=== PATIENT | female | born 2000 | race American Indian/Alaskan Native ===

== ENCOUNTER 2022-01-09 09:27 | Outpatient (CLI) | payer MEDICAID ==
[2022-01-09 10:11] VITALS: BP 121/62
== END 2022-01-09 13:18 | disposition home or self-care (01) ==
LOC: TRG 09:27 → APU 09:28 → TRG 13:18
PROVIDERS: ATTEND Student in an Organized Health Care Education/Training Program
DX: O47.1 False labor at or after 37 completed weeks of gestation (principal); Z3A.39 39 weeks gestation of pregnancy
CPT/HCPCS: 59025

== ENCOUNTER 2022-01-10 23:13 | Inpatient (IN) | payer MEDICAID ==
[2022-01-11] MEDS ORDERED: BUTORPHANOL 2 MG/1 ML INJ IV PRN ×2 (00:27)
[2022-01-11] MEDS ORDERED: MINERAL OIL 30 ML ORAL LIQD PO PRN (00:27)
[2022-01-11] MEDS ORDERED: OXYTOCIN 10 UNIT/1 ML INJ IM PRN (00:27)
[2022-01-11] MEDS ORDERED: METHYLERGONOVINE MALEATE 0.2 MG/ML VIAL IM PRN (00:27)
[2022-01-11] MEDS ORDERED: TERBUTALINE 1 MG/1 ML INJ SUB-Q PRN (00:27)
[2022-01-11] MEDS ORDERED: fentaNYL 100 MCG/2 ML INJ IV PRN (00:27)
[2022-01-11] MEDS ORDERED: LIDOCAINE (2%) 20 MG/1 ML VIAL 20 ML MDV INFILTRATI ONE (00:27)
[2022-01-11] MEDS ORDERED: CARBOPROST TROMETHAMINE 250 MCG/1 ML INJ IM PRN (00:27)
[2022-01-11] MEDS ORDERED: LOPERAMIDE 2 MG CAP PO PRN (00:27)
[2022-01-11] MEDS ORDERED: miSOPROStol 200 MCG TAB PR PRN (00:27)
[2022-01-11] MEDS ORDERED: ACETAMINOPHEN 325 MG TAB PO PRN ×3 (00:27→13:33)
[2022-01-11] MEDS ORDERED: ePHEDrine SULFATE 50 MG/1 ML INJ IV PRN ×2 (00:27→03:00)
[2022-01-11] MEDS ORDERED: LACTATED RINGERS 1,000 ML IV SCH (00:30)
--- NOTE | 2022-01-11 00:34 | History and Physical Report ---
History of Present Illness Date of examination: 01/11/22 Chief complaint: painful uterine contractions History of present illness: EDC Calculations by LMP: 01/13/2022 EDC Confirmation: 01/13/2022 Past History : 1 Past Medical History: Reviewed and updated today: Negative Past Medical History Past Surgical History: Reviewed and updated today: Negative Past Surgical History General Comments - FH: neg Social History: no e/t/d Risk Factors: Smoked Tobacco Use: Never smoker Smokeless Tobacco Use: Never HIV High Risk Behavior: no Exercise: no Seatbelt Use: 100 % Alcohol Use: no Drug Use: no Past Medical History 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 of genital herpes: no Rash, Viral, or Febrile illness since last LMP? no Varicella/Chicken Pox Status: no Genetic History Congenital Heart Defect: Mom: no Dad: no Kristin Disease: Mom: no Dad: no Thalassemia Mom: no Dad: no Neural Tube Defect Mom: no Dad: no Down's Syndrome Mom: no Dad: no Kevin-Sachs Mom: no Dad: no Sickle Cell Disease/Trait Mom: no Dad: no Hemophilia Mom: no Dad: no Muscular Dystrophy Mom: no Dad: no Cystic Fibrosis Mom: no Dad: no [place] Chorea Mom: no Dad: no Mental Retardation Mom: no Dad: no Fragile X Mom: no Dad: no Other Genetic/Chromosomal Disorder Mom: no Dad: no Child w/other defect Mom: no Dad: no Enviromental Exposures Xray Exposure: no Medication, drug, or alcohol use since LMP: no Chemical/Other Exposure: no Exposure to Cat Liter: no Hx of Parvovirus (Fifth Disease): no Occupational Exposure to Children: none Active Medications: None Past History Past Medical History: other (see HPI) Past Surgical History: other (see HPI) [employer] History: other (see HPI) Family/Genetic History: other (see HPI) - Obstetrical History Expected Date of Delivery: 01/13/22 Actual Gestation: 39 Week(s) 5 Day(s) : 1 Para: 0 Hx # Term Pregnancies: 0 Number of Pregnancies: 0 Spontaneous Abortions: 0 Induced : 0 Number of Living Children: 0 Medications and Allergies Allergies Allergy/AdvReac Type Severity Reaction Status Date / Time No Known Allergies Allergy Verified 01/11/22 00:34 Review of Systems All systems: negative - Vital Signs Vital signs: Vital Signs Resp Pulse Ox 14 100 01/10/22 23:52 01/10/22 23:52 Temp Pulse Resp BP Pulse Ox 92 H 14 99 01/11/22 00:28 01/10/22 23:52 01/11/22 00:28 - Physical Exam Cardiovascular: Regular rate Lungs: Positive: Normal air movement Abdomen: Positive: normal appearance, soft Genitourinary (Female): Positive: normal external genitalia, normal perenium Vulva: both: normal Vagina: Positive: normal moisture Uterus: Positive: normal size, normal contour Anus/Rectum: Positive: normal perianal skin Extremities: Positive: normal - Obstetrical Uterine Contraction Monitor Mode: External Cervical Dilatation: 4 (per triage nurse) Cervical Effacement Percentage: 60 station: -3 Uterine Contraction Pattern: Regular Uterine Tone Measurement Phase: Contraction Uterine Contraction Intensity: Moderate Results Result Diagrams: 01/11/22 01:00 All other labs normal. Assessment and Plan pt started care in our office @ 33 weeks. 21y/o @ 39+5 weeks. She was exam ined in triage 24hrs ago and was closed, she is now 4/60/-3 with regular painful ctx. admission orders in EMR. labs orders. GBS negative. Epidural PRN. - Patient Problems (1) 39 weeks gestation of Current Visit: Yes Status: Acute (2) Rh negative status during Current Visit: Yes Status: Acute Qualifiers: Trimester: third trimester Qualified Code(s): O26.893 - Other specified related conditions, third trimester; Z67.91 - Unspecified blood type, Rh negative
[2022-01-11] MEDS ORDERED: OXYTOCIN DRIP 30 UNITS/500 ML BAG IV SCH ×3 (01:00→13:33)
[2022-01-11 01:24] LABS: Hematocrit 31.1 % (30.3-42.9); Hemoglobin 10.2 gm/dl (10.1-14.3); Mean Corpuscular HGB Conc 33 % (30-34); Mean Corpuscular Volume 72 fl (79-97); Platelet Count 309 K/mm3 (140-440); Red Cell Distribution Width 18.5 % (13.2-15.2)
[2022-01-11 01:49] LABS: Hepatitis C Virus Antibody Non-Reactive (NonReactive)
[2022-01-11] MEDS ORDERED: fentaNYL-BUPIV 2 MCG/ML-0.125% 200 MCG/100 ML BAG EPIDURAL SCH (03:00)
[2022-01-11] MEDS ORDERED: NALOXONE 0.4 MG/1 ML INJ IV PRN (03:00)
--- NOTE | 2022-01-11 03:47 | Anesthesia Consultation ---
Anesthesia Consult and Med Hx Date of service: 01/11/22 - Airway Anesthetic Teeth Evaluation: Poor ROM Head & Neck: Adequate Mental/Hyoid Distance: Adequate Mallampati Class: Class II Intubation Access Assessment: Good - Pulmonary Exam CTA: Yes - Cardiac Exam Cardiac Exam: RRR - Pre-Operative Health Status ASA Pre-Surgery Classification: ASA2 Proposed Anesthetic Plan: Epidural - Pulmonary Hx Asthma: No - Cardiovascular System Hx Hypertension: No - Central Nervous System Hx Seizures: No Hx Psychiatric Problems: No - Endocrine Hx Renal Disease: No Hx Hypothyroidism: No Hx Hyperthyroidism: No - Hematic Hx Anemia: No Hx Sickle Cell Disease: No - Other Systems Hx Alcohol Use: No Hx Substance Use: No
--- NOTE | 2022-01-11 03:49 | Progress Note ---
Labor Epidural - Labor Epidural Start Time: 03:13 Stop Time: 03:30 Performed by:: ITZ FLAHERTY Procedure: Patient is requesting a laboring epidural for laboring pain. Patient IDed, H&P reviewed, all questions and concerns were answered, and consent was signed. Timeout was performed at bedside. Patient in sitting position. Sterile prep and drape was performed. [3] ml of 1% lidocaine skin wheal at L[3]- L [4]. 17- gauge Tuohy epidural needle was advanced to loss of resistance with saline technique 7cm. Single dural perforation via 25 guage spinal needle placed through the shaft of Epidural needle. Positive CSF via spinal needle. Negative CSF negative blood via Epidural needle. Epidural catheter advanced to [12] centimeters. [NEGATIVE] Aspiration [NEGATIVE] test dose. Negative Paresthesia. Sterile dressing applied. Patient tolerated procedure.
--- NOTE | 2022-01-11 07:38 | Progress Note ---
Assessment and Plan A: 21 y.o. @ 39.5 wks, active labor. - Patient Problems (1) 39 weeks gestation of Current Visit: Yes Status: Acute Plan to address problem: Continue with expectant management. Will consider starting Pitocin if contractions space out. Anticipate . Subjective - Subjective Date of service: 01/11/22 Principal diagnosis: IUP @ 39.5 wks, active labor Interval history: Pt comfortable with epidural. Patient reports: movement normal Objective - Vital Signs Vital Signs: Vital Signs - 12hr 01/10/22 01/11/22 01/11/22 23:52 00:13 00:18 Temperature Pulse Rate 91 H 97 H Respiratory 14 Rate Blood Pressure O2 Sat by Pulse 100 100 98 Oximetry 01/11/22 01/11/22 01/11/22 00:23 00:28 00:33 Temperature Pulse Rate 95 H 92 H 92 H Respiratory Rate Blood Pressure O2 Sat by Pulse 99 99 99 Oximetry 01/11/22 01/11/22 01/11/22 00:38 00:43 00:48 Temperature Pulse Rate 96 H 87 91 H Respiratory Rate Blood Pressure O2 Sat by Pulse 100 100 99 Oximetry 01/11/22 01/11/22 01/11/22 00:53 00:58 01:03 Temperature Pulse Rate 93 H 105 H 103 H Respiratory Rate Blood Pressure O2 Sat by Pulse 99 100 100 Oximetry 01/11/22 01/11/22 01/11/22 01:08 01:13 01:18 Temperature Pulse Rate 96 H 102 H 97 H Respiratory Rate Blood Pressure O2 Sat by Pulse 100 99 99 Oximetry 01/11/22 01/11/22 01/11/22 01:23 01:28 01:33 Temperature Pulse Rate 89 98 H 91 H Respiratory Rate Blood Pressure O2 Sat by Pulse 100 100 100 Oximetry 01/11/22 01/11/22 01/11/22 01:38 01:43 01:48 Temperature Pulse Rate 77 89 87 Respiratory Rate Blood Pressure O2 Sat by Pulse 100 100 100 Oximetry 01/11/22 01/11/22 01/11/22 01:53 01:58 02:03 Temperature Pulse Rate 97 H 99 H 98 H Respiratory Rate Blood Pressure O2 Sat by Pulse 100 100 100 Oximetry 01/11/22 01/11/22 01/11/22 02:05 02:08 02:13 Temperature 97.9 F Pulse Rate 99 H 91 H Respiratory Rate Blood Pressure O2 Sat by Pulse 100 100 Oximetry 01/11/22 01/11/22 01/11/22 02:18 02:23 02:28 Temperature Pulse Rate 83 85 97 H Respiratory Rate Blood Pressure O2 Sat by Pulse 100 99 100 Oximetry 01/11/22 01/11/22 01/11/22 02:33 02:38 02:43 Temperature Pulse Rate 105 H 101 H 89 Respiratory Rate Blood Pressure O2 Sat by Pulse 100 100 100 Oximetry 01/11/22 01/11/22 01/11/22 02:48 03:02 03:03 Temperature Pulse Rate 109 H 83 84 Respiratory Rate Blood Pressure 122/75 O2 Sat by Pulse 100 100 Oximetry 01/11/22 01/11/22 01/11/22 03:07 03:12 03:17 Temperature Pulse Rate 88 89 109 H Respiratory Rate Blood Pressure O2 Sat by Pulse 100 100 100 Oximetry 01/11/22 01/11/22 01/11/22 03:22 03:27 03:28 Temperature Pulse Rate 99 H 94 H 103 H Respiratory Rate Blood Pressure 118/74 O2 Sat by Pulse 100 100 Oximetry 01/11/22 01/11/22 01/11/22 03:31 03:32 03:34 Temperature Pulse Rate 101 H 107 H 98 H Respiratory Rate Blood Pressure 119/73 115/68 O2 Sat by Pulse 99 Oximetry 01/11/22 01/11/22 01/11/22 03:37 03:40 03:42 Temperature Pulse Rate 100 H 90 95 H Respiratory Rate Blood Pressure 122/72 114/62 O2 Sat by Pulse 100 100 Oximetry 01/11/22 01/11/22 01/11/22 03:43 03:46 03:47 Temperature Pulse Rate 93 H 89 85 Respiratory Rate Blood Pressure 116/61 115/58 O2 Sat by Pulse 99 Oximetry 01/11/22 01/11/22 01/11/22 03:49 03:52 03:56 Temperature Pulse Rate 84 94 H 82 Respiratory Rate Blood Pressure 104/58 106/56 94/52 O2 Sat by Pulse 99 Oximetry 01/11/22 01/11/22 01/11/22 03:57 03:58 04:01 Temperature Pulse Rate 88 87 82 Respiratory Rate Blood Pressure 104/57 113/64 O2 Sat by Pulse 100 Oximetry 01/11/22 01/11/2201/11/22 04:02 04:04 04:07 Temperature Pulse Rate 86 88 81 Respiratory Rate Blood Pressure 111/62 108/63 O2 Sat by Pulse 100 100 Oximetry 01/11/22 01/11/22 01/11/22 04:10 04:12 04:13 Temperature Pulse Rate 86 84 86 Respiratory Rate Blood Pressure 106/62 110/64 O2 Sat by Pulse 100 Oximetry 01/11/22 01/11/22 01/11/22 04:17 04:22 04:27 Temperature Pulse Rate 87 92 H 90 Respiratory Rate Blood Pressure 132/59 O2 Sat by Pulse 100 100 100 Oximetry 01/11/22 01/11/22 01/11/22 04:32 04:34 04:37 Temperature Pulse Rate 95 H 93 H 84 Respiratory Rate Blood Pressure 122/62 O2 Sat by Pulse 100 100 Oximetry 01/11/22 01/11/22 01/11/22 04:42 04:47 04:48 Temperature Pulse Rate 80 75 78 Respiratory Rate Blood Pressure 110/57 O2 Sat by Pulse 100 100 Oximetry 01/11/22 01/11/22 01/11/22 04:52 04:57 05:02 Temperature Pulse Rate 88 86 82 Respiratory Rate Blood Pressure O2 Sat by Pulse 99 99 99 Oximetry 01/11/22 01/11/22 01/11/22 05:04 05:07 05:12 Temperature Pulse Rate 83 75 87 Respiratory Rate Blood Pressure 109/56 O2 Sat by Pulse 99 99 Oximetry 01/11/22 01/11/22 01/11/22 05:17 05:18 05:22 Temperature Pulse Rate 94 H 81 85 Respiratory Rate Blood Pressure 95/55 O2 Sat by Pulse 99 99 Oximetry 01/11/22 01/11/22 01/11/22 05:27 05:32 05:34 Temperature Pulse Rate 79 82 85 Respiratory Rate Blood Pressure 96/54 O2 Sat by Pulse 99 99 Oximetry 01/11/22 01/11/22 01/11/22 05:37 05:42 05:47 Temperature Pulse Rate 74 85 83 Respiratory Rate Blood Pressure 95/49 O2 Sat by Pulse 99 98 98 Oximetry 01/11/22 01/11/22 01/11/22 05:52 05:57 06:02 Temperature Pulse Rate 67 63 80 Respiratory Rate Blood Pressure 89/53 O2 Sat by Pulse 98 98 98 Oximetry 01/11/22 01/11/22 01/11/22 06:07 06:12 06:17 Temperature Pulse Rate 72 76 76 Respiratory Rate Blood Pressure O2 Sat by Pulse 99 98 98 Oximetry 01/11/22 01/11/22 01/11/22 06:18 06:22 06:27 Temperature Pulse Rate 75 73 61 Respiratory Rate Blood Pressure 90/51 O2 Sat by Pulse 98 100 Oximetry 01/11/22 01/11/22 01/11/22 06:32 06:33 06:37 Temperature Pulse Rate 87 88 76 Respiratory Rate Blood Pressure 103/55 O2 Sat by Pulse 99 99 Oximetry 01/11/22 01/11/22 01/11/22 06:42 06:47 06:48 Temperature Pulse Rate 83 75 74 Respiratory Rate Blood Pressure 102/51 O2 Sat by Pulse 99 99 Oximetry 01/11/22 01/11/22 01/11/22 06:52 06:57 07:02 Temperature Pulse Rate 75 73 76 Respiratory Rate Blood Pressure O2 Sat by Pulse 100 99 99 Oximetry 01/11/22 01/11/22 01/11/22 07:05 07:07 07:12 Temperature Pulse Rate 75 81 81 Respiratory Rate Blood Pressure 81/43 O2 Sat by Pulse 98 99 Oximetry 01/11/22 01/11/22 01/11/22 07:17 07:22 07:27 Temperature Pulse Rate 73 76 92 H Respiratory Rate Blood Pressure O2 Sat by Pulse 98 100 99 Oximetry 01/11/22 01/11/22 07:29 07:32 Temperature Pulse Rate 81 76 Respiratory Rate Blood Pressure 91/46 88/63 O2 Sat by Pulse 99 Oximetry - Exam Narrative Exam: AROM for clear fluid. Cardiovascular: Regular rate Lungs: Normal air movement Abdomen: Present: normal appearance, soft Vulva: both: normal FHR: category 1 Uterine Contraction Monitor Mode: External Cervical Dilatation: 9.5 Cervical Effacement Percentage: 100 station: 0 Uterine Contraction Pattern: Regular Uterine Tone Measurement Phase: Resting Uterine Contraction Intensity: Moderate Extremities: normal - Labs Labs: Abnormal Labs 01/11/22 01:00 MCV 72 L MCH 24 L RDW 18.5 H Laboratory Results - last 24 hr 01/11/22 01/11/22 01/11/22 01:00 01:00 01:00 WBC 9.2 RBC 4.30 Hgb 10.2 Hct 31.1 MCV 72 L MCH 24 L MCHC 33 RDW 18.5 H Plt Count 309 Syphilis IgG/IgM Ab Nonreactive Hep Bs Antigen Hepatitis C Antibody Non-reactive HIV 1&2 Antibody Rapid HIV P24 Antigen Rubella IgG Antibody Immune Blood Type O NEGATIVE Antibody Screen Negative 01/11/22 01/11/22 01:00 01:00 WBC RBC Hgb Hct MCV MCH MCHC RDW Plt Count Syphilis IgG/IgM Ab Hep Bs Antigen Non-reactive Hepatitis C Antibody HIV 1&2 Antibody Rapid Non react HIV P24 Antigen Non react Rubella IgG Antibody Blood Type Antibody Screen
--- NOTE | 2022-01-11 11:14 | Procedure Note ---
OB Delivery Note - Delivery Date of Delivery: 01/11/22 Cycle Manager: AJAY HERNANDEZ Estimated blood loss: 300cc - Vaginal Delivery presentation: vertex Delivery position: OA Intrapartum events: none Delivery induction: none Delivery augmentation: rupture of membranes Delivery monitor: external FHT, external uterine Route of delivery: Delivery cord: nuchal cord (Nuchal X1 loose), 3 umbilical vessels, other (Around foot X1 loose) Episiotomy: none Delivery laceration: 2nd degree, other (Labial laceration) Delivery repair: vicryl (3-0 CT, 3-0 SH) Anesthesia: epidural Delivery comments: of viable male. Infant to mother's abdomen for skin to skin. Nuchal cord X1 and around foot X1, easily reduced. Cord clamped after cessation of pulse. Cut by FOC. Spontaneous delivery of placenta, intact, complete, 3 vessels noted. Perineum and vaginal inspected. 2nd degree and labial lacerations noted. Both repaired. Fundus firm, minimal bleeding noted. Blood loss: 300ml. Apgars 8,9. Infant weight: 6-15. Instruments and sponges counted X2 with RN and correct X2. and mother left in stable condition in care of RN. - A at 1 minute: 8 at 5 minutes: 9 ("Richie", 6-15) Gender: Male
[2022-01-11] MEDS ORDERED: MAGNESIUM HYDROXIDE (MOM) ORAL LIQD UDC PO PRN (13:33)
[2022-01-11] MEDS ORDERED: diphenhydrAMINE 25 MG CAP PO PRN (13:33)
[2022-01-11] MEDS ORDERED: LANOLIN/ZINC/DIMETHICONE (LANSINOH) 7 GM TP PRN ×2 (13:33)
[2022-01-11] MEDS ORDERED: ONDANSETRON 4 MG/2 ML INJ IV PRN (13:33)
[2022-01-11] MEDS ORDERED: miSOPROStol 100 MCG TAB PR PRN (13:33)
[2022-01-11] MEDS ORDERED: PROMETHAZINE 25 MG RECT SUPP PR PRN (13:33)
[2022-01-11] MEDS ORDERED: WITCH HAZEL/ GLYCERIN PAD TP PRN (13:33)
[2022-01-11] MEDS ORDERED: PROMETHAZINE 25 MG TAB PO PRN (13:33)
[2022-01-11] MEDS ORDERED: BENZOCAINE/MENTHOL 20/0.5% TOP SPRAY 56 GM TP PRN (13:33)
[2022-01-11] MEDS ORDERED: oxyCODONE /ACETAMINOPHEN 5-325MG TAB PO PRN (13:33)
[2022-01-11] MEDS: IBUPROFEN 800 MG TAB PO SCH ×2 (15:21→21:32)
[2022-01-11] MEDS: DOCUSATE SODIUM 100 MG CAP PO SCH (21:32)
[2022-01-12 00:30] LABS: Hematocrit 25.6 % (30.3-42.9); Hemoglobin 8.5 gm/dl (10.1-14.3)
[2022-01-12] MEDS: IBUPROFEN 800 MG TAB PO SCH ×4 (04:53→22:00)
[2022-01-12] MEDS: PRENATAL VIT27-FE FUMARATE-FOLIC ACID VIT TAB PO SCH (09:57)
[2022-01-12] MEDS: DOCUSATE SODIUM 100 MG CAP PO SCH ×2 (09:58→22:00)
--- NOTE | 2022-01-12 10:45 | Post Anesthesia Evaluation ---
- Post Anesthesia Evaluation Patient Participated: Yes Airway Patent: Yes Stable Respiratory Function: Yes Nausea/Vomiting: No Temp > 96.8F: Yes Pain Manageable: Yes Adequeate Hydration: No Anesthesia Complications: Yes Block Receding Appropriately: Yes Patient on Ventilator: No
--- NOTE | 2022-01-12 11:26 | Progress Note ---
Assessment and Plan A: 21 y.o. s/p . day #1. - Patient Problems (1) (normal spontaneous vaginal delivery) Current Visit: Yes Status: Acute Plan to address problem: Continue with care. Will need case management before discharge home. - Ordered and call placed. Please send UDS. Anticipate discharge home on 01/13. Subjective - Subjective Date of service: 01/12/22 Principal diagnosis: s/p Patient reports: appetite normal, voiding normally, pain well controlled, ambulating normally : doing well Objective - Vital Signs Latest vital signs: Vital Signs Temp Pulse Resp BP BP Pulse Ox Pulse Ox 01/12/22 08:50 97.5 F L 73 18 103/72 98 01/12/22 01:00 98.6 F 79 18 112/57 01/11/22 20:30 93 01/11/22 20:16 98.6 F 92 H 18 120/71 93 01/11/22 17:33 98.0 F 86 18 115/58 98 01/11/22 13:00 97 01/11/22 12:45 98.2 F 88 16 114/56 97 01/11/22 12:00 98.2 F 01/11/22 11:57 99 H 100 01/11/22 11:54 94 H 115/74 01/11/22 11:52 96 H 100 01/11/22 11:47 102 H 100 01/11/22 11:42 109 H 100 01/11/22 11:39 98 H 108/78 01/11/22 11:37 103 H 100 01/11/22 11:32 101 H 100 01/11/22 11:27 84 100 Intake and Output 01/11/22 01/12/22 01/12/22 22:59 06:59 14:59 Intake Total 200 Output Total 600 Balance -400 Intake: Oral 200 Output: Urine 600 Void 600 Other: Total, Intake Amount 200 Total, Output Amount 600 # Voids Void 1 Estimated Blood Loss 200 - Exam Narrative Exam: Pt seems lethargic today. She is easily aroused and is alert and oriented X4 when awake. Cardiovascular: Present: Regular rate Lungs: Present: Normal air movement Abdomen: Present: normal appearance, soft Vulva: both: normal Uterus: Present: normal, firm, other (Light lochia rubra noted. ) Extremities: Present: normal - Labs Labs: Abnormal lab results 01/12/22 Range/Units 00:00 Hgb 8.5 L (10.1-14.3) gm/dl Hct 25.6 L (30.3-42.9) %
[2022-01-12] MEDS ORDERED: TETANUS,DIPH,PERTUSS(ACELL) VACCINE 0.5 ML SYRINGE IM ONE (11:30)
[2022-01-12 14:58] LABS: Amphetamine Screen,Urine Negative; Benzodiazepines Screen,Urine Negative; Cannabinoid Screen,Urine Negative; Cocaine Screen,Urine Negative; Methadone Screen,Urine Negative; Opiate Screen,Urine Negative
[2022-01-12] MEDS: FERROUS SULFATE 325 MG TAB PO SCH (17:21)
[2022-01-13] MEDS: IBUPROFEN 800 MG TAB PO SCH (06:15)
--- NOTE | 2022-01-13 08:06 | Discharge Summary ---
Providers - Providers Date of Admission: 01/11/22 07:27 Date of discharge: 01/13/22 (d/c home, declines circ) Attending physician: RADHIKA WILSON 01/12/22 09:15 Consult to Case Management [CONS] Routine Services Needed at Discharge: Car Hop Notified:: [id number] no answer Additional Physician Instructions: late care Primary care physician: RADHIKA WILSON Hospitalization Reason for admission: Labor Condition: Good Pertinent studies: post delivery H&H 8.5/25.6, anemia d/t acute blood loss Procedures: Hospital course: uncomplicated and course Disposition: HOME / SELF CARE / HOMELESS Final Discharge Diagnosis (Prints w/discharge instructions): vaginal Time spent for discharge: 20 - Discharge Diagnoses (1) (normal spontaneous vaginal delivery) Status: Acute Core Measure Documentation - Palliative Care Palliative Care/ Comfort Measures: Not Applicable - Core Measures Any of the following diagnoses?: none Exam - Constitutional Vitals: Temp Pulse Resp BP Pulse Ox 97.9 F 72 18 119/70 98 01/13/22 00:27 01/13/22 00:27 01/13/22 00:27 01/13/22 00:27 01/13/22 00:27 General appearance: Present: no acute distress, well-nourished - EENT Eyes: Present: PERRL ENT: hearing intact, clear oral mucosa - Neck Neck: Present: supple, normal ROM - Respiratory Respiratory effort: normal Respiratory: bilateral: CTA - Cardiovascular Rhythm: regular Heart Sounds: Absent: rub, click - Extremities Extremities: pulses symmetrical, No edema Peripheral Pulses: within normal limits - Abdominal General gastrointestinal: Present: soft, non-tender, non-distended, normal bowel sounds Female genitourinary: Present: normal - Integumentary Integumentary: Present: clear, warm, dry - Musculoskeletal Musculoskeletal: gait normal, strength equal bilaterally - Psychiatric Psychiatric: appropriate mood/affect, intact judgment & insight - Neurologic Neurologic: CNII-XII intact, moves all extremities - Additional findings Additional findings: lochia scant, fundus firm, bottle feeding, no circ and no plans for contraception Plan Activity: no restrictions Diet: regular Follow up with: RADHIKA WILSON MD [Primary Care Provider] - 6 Weeks Prescriptions: Docusate Sodium [Colace] 100 mg PO BID PRN #60 capsule PRN Reason: Constipation Lidocain2.5%/Prilocai2.5% [Emla] 1 applic TP ONCE #1 tube Ferrous Sulfate [Feosol 325 MG tab] 325 mg PO QDAY #30 tablet Ibuprofen [Motrin] 800 mg PO Q8HR PRN #20 tablet PRN Reason: Pain, Moderate (4-6)
[2022-01-13] MEDS: DOCUSATE SODIUM 100 MG CAP PO SCH (10:24)
[2022-01-13] MEDS: FERROUS SULFATE 325 MG TAB PO SCH (10:24)
[2022-01-13] MEDS: PRENATAL VIT27-FE FUMARATE-FOLIC ACID VIT TAB PO SCH (10:24)
[2022-01-13 11:36] VITALS: BP 111/67
== END 2022-01-13 11:42 | disposition home or self-care (01) | DRG 775 ==
LOC: TRG 23:13 → LD 23:19 → TRG 01-11 08:01 → OB 01-11 12:33
PROVIDERS: ADMIT Obstetrics & Gynecology; ATTEND Obstetrics & Gynecology
PROC: 10E0XZZ Delivery of Products of Conception, External Approach (ICD-10-PCS; principal; 2022-01-11)
PROC: 0KQM0ZZ Repair Perineum Muscle, Open Approach (ICD-10-PCS; 2022-01-11)
PROC: 00HU33Z Insertion of Infusion Device into Spinal Canal, Percutaneous Approach (ICD-10-PCS; 2022-01-11)
PROC: 3E0R3BZ Introduction of Anesthetic Agent into Spinal Canal, Percutaneous Approach (ICD-10-PCS; 2022-01-11)
PROC: 3E0234Z Introduction of Serum, Toxoid and Vaccine into Muscle, Percutaneous Approach (ICD-10-PCS; 2022-01-12)
DX: O69.81X0 Labor and delivery complicated by cord around neck, without compression, not applicable or unspecified (principal); Z37.0 Single live birth; Z3A.39 39 weeks gestation of pregnancy; Z20.822 Contact with and (suspected) exposure to COVID-19; Z23 Encounter for immunization; O26.893 Other specified pregnancy related conditions, third trimester; Z67.41 Type O blood, Rh negative; O70.1 Second degree perineal laceration during delivery; O90.81 Anemia of the puerperium; D62 Acute posthemorrhagic anemia
CPT/HCPCS: 36415; 59025; 80307; 85014; 85018; 85027; 85461; 86592; 86706; 86762; 86803; 86850; 86900; 86901; 87806; G0378; J3490; J2790; J7120; U0003